=== PATIENT | female | born 1985 | race Two or more races ===

== ENCOUNTER 2019-08-10 07:40 | Inpatient (IN) | payer OTHER ==
[~2019-08-10] VITALS: Ht 157.5 cm; Wt 90.7 kg
[2019-08-10] MEDS ORDERED: OXYTOCIN 30 UNITS/LACT RINGERS 500 ML IV ONE (08:43)
[2019-08-10] MEDS ORDERED: OXYTOCIN 30 UNITS/LACT RINGERS 500 ML IV PRN (08:43)
[2019-08-10] MEDS ORDERED: RINGERS SOLUTION,LACTATED 1,000 ML IV PRN (08:43)
[2019-08-10] MEDS ORDERED: CITRIC ACID/SODIUM CITRATE 30 ML SOLUTION UDCUP PO PRN (08:45)
[2019-08-10] MEDS ORDERED: METOCLOPRAMIDE HCL 5 MG/ML 2 ML VIAL IVP PRN (08:45)
[2019-08-10] MEDS ORDERED: TERBUTALINE SULFATE 1 MG/ML VIAL SQ PRN (08:45)
[2019-08-10] MEDS ORDERED: FentaNYL CITRATE-PF 100 MCG/2 ML VIAL IVP PRN ×4 (08:45→22:30)
[2019-08-10] MEDS: RINGERS SOLUTION,LACTATED 1,000 ML IV SCH ×3 (08:59→20:28)
[2019-08-10] MEDS ORDERED: RINGERS SOLUTION,LACTATED 1,000 ML IV SCH (08:59)
[2019-08-10] MEDS ORDERED: AMPICILLIN SODIUM 2 GM/NS 100 ML IV ONE (09:00)
[2019-08-10 09:22] LABS: BASOPHILS % (AUTO) 0.5 % (0.0-2.0); EOSINOPHILS % (AUTO) 0.5 % (1.0-6.0); HEMATOCRIT 34.3 % (36-46); HEMOGLOBIN 11.4 g/dL (12.0-16.0); LYMPHOCYTES # (AUTO) 1.8 K/uL (1.0-4.8); LYMPHOCYTES % (AUTO) 15.8 % (22.0-44.0); MEAN CORPUSCULAR HEMOGLOBIN 27.9 pg (26.0-34.0); MEAN CORPUSCULAR HGB CONC 33.1 G/dL (31.0-37.0); MEAN CORPUSCULAR VOLUME 84 fL (80-100); MONOCYTES # (AUTO) 0.6 K/uL (0.1-1.0); MONOCYTES % (AUTO) 5.2 % (2.0-9.0); NEUTROPHILS # (AUTO) 8.8 K/uL (1.8-7.7); PLATELET COUNT (AUTO)-OB 168 K/uL (150-450); RED BLOOD CELL COUNT(AUTO) 4.07 MIL/uL (4.00-5.20); RED CELL DISTRIBUTION WIDTH 13.4 % (11.5-14.5)
[2019-08-10] MEDS ORDERED: PREN-217 PO (10:23)
[2019-08-10] MEDS ORDERED: LEVO75 PO (10:23)
[2019-08-10 10:26] VITALS: BP 109/59
[2019-08-10] MEDS ORDERED: AMPICILLIN SODIUM 1 GM/NS 50 ML IV SCH (13:00)
[2019-08-10] MEDS ORDERED: ROPIVACAINE HCL/PF 0.2% 100 ML ED ONE (17:33)
[2019-08-10] MEDS ORDERED: ROPIVACAINE HCL/PF 0.2% 100 ML ED PRN (17:58)
[2019-08-10] MEDS ORDERED: DiphenhydrAMINE HCL 50 MG/ML VIAL IVP PRN ×2 (18:00→22:30)
[2019-08-10] MEDS ORDERED: NALBUPHINE HCL 10 MG/ML VIAL IVP PRN ×3 (18:00→22:30)
[2019-08-10] MEDS ORDERED: ONDANSETRON HCL 4 MG/2 ML VIAL IVP PRN ×2 (18:00→22:30)
[2019-08-10] MEDS ORDERED: OXYGEN THERAPY IH SCH (20:00)
[2019-08-10] MEDS ORDERED: SODIUM CHLORIDE 0.9% 1,000 ML ONE (20:28)
[2019-08-10] MEDS ORDERED: RINGERS SOLUTION,LACTATED 1,000 ML IV ONE (20:28)
[2019-08-10] MEDS ORDERED: LIDOCAINE/PF 2% 5 ML VIAL ONE (20:28)
[2019-08-10] MEDS ORDERED: GUM MASTIC/STORAX/MSAL/ALCOHOL LIQUID 0.67 ML VIAL TP ONE (20:53)
[2019-08-10] MEDS ORDERED: HYDROmorphone 2 MG/ML SYRINGE IVP PRN (21:30)
[2019-08-10] MEDS ORDERED: MEPERIDINE-PF 25 MG/ML VIAL IVP PRN (21:30)
[2019-08-10] MEDS ORDERED: ACETAMINOPHEN 1000 MG/ISO-OSM 100 ML IV ONE (21:46)
[2019-08-10] MEDS ORDERED: OXYTOCIN 20 UNITS/LACT RINGERS 1,000 ML IV SCH (22:27)
[2019-08-10] MEDS ORDERED: DEXTROSE 5%-0.45% SODIUM CHL 1,000 ML IV SCH (22:27)
[2019-08-10] MEDS ORDERED: MORPHINE SULFATE 10 MG/ML SYRINGE IVP PRN (22:30)
[2019-08-10] MEDS ORDERED: OxyCODONE HCL/ACETAMINOPHEN 5-325 MG TABLET PO PRN ×2 (22:30)
[2019-08-10] MEDS ORDERED: GLYCERIN/WITCH HAZEL LEAF 40 PADS JAR TP PRN (22:30)
[2019-08-10] MEDS ORDERED: NALOXONE HCL 0.4 MG/ML VIAL IVP PRN (22:30)
[2019-08-11] MEDS: KETOROLAC TROMETHAMINE 30 MG/ML VIAL IVP SCH ×2 (04:00→10:38)
[2019-08-11] MEDS: ACETAMINOPHEN 1000 MG/ISO-OSM 100 ML IV SCH ×2 (05:36→13:23)
[2019-08-11 07:41] LABS: BASOPHILS % (AUTO) 0.3 % (0.0-2.0); EOSINOPHILS % (AUTO) 0.2 % (1.0-6.0); HEMATOCRIT 28.7 % (36-46); HEMOGLOBIN 9.6 g/dL (12.0-16.0); LYMPHOCYTES # (AUTO) 1.4 K/uL (1.0-4.8); LYMPHOCYTES % (AUTO) 11.9 % (22.0-44.0); MEAN CORPUSCULAR HEMOGLOBIN 28.5 pg (26.0-34.0); MEAN CORPUSCULAR HGB CONC 33.6 G/dL (31.0-37.0); MEAN CORPUSCULAR VOLUME 85 fL (80-100); MONOCYTES # (AUTO) 0.5 K/uL (0.1-1.0); MONOCYTES % (AUTO) 4.3 % (2.0-9.0); NEUTROPHILS % (AUTO) 83.3 % (40.0-70.0); RED BLOOD CELL COUNT(AUTO) 3.38 MIL/uL (4.00-5.20); RED CELL DISTRIBUTION WIDTH 13.6 % (11.5-14.5)
[2019-08-11] MEDS ORDERED: OXYGEN THERAPY IH SCH ×3 (08:00)
[2019-08-11 08:37] LABS: PLATELET COUNT (AUTO)-OB 135 K/uL (150-450)
[2019-08-11] MEDS ORDERED: MAGNESIUM HYDROXIDE SUSPENSION 30 ML UDCUP PO SCH (09:00)
[2019-08-11] MEDS: IBUPROFEN 600 MG TABLET PO PRN (18:20)
[2019-08-12] MEDS: IBUPROFEN 600 MG TABLET PO PRN ×2 (00:57→09:11)
[2019-08-12] MEDS ORDERED: FentaNYL CITRATE-PF 100 MCG/2 ML VIAL IVP ONE (01:12)
[2019-08-12] MEDS ORDERED: LIDOCAINE/PF 2% 5 ML VIAL IM ONE (01:12)
[2019-08-12] MEDS ORDERED: ONDANSETRON HCL 4 MG/2 ML VIAL IVP ONE (01:12)
[2019-08-12] MEDS ORDERED: MORPHINE SULFATE/PF 0.5 MG/ML 10 ML AMP IVP ONE (01:12)
[2019-08-12] MEDS ORDERED: LEVOTHYROXINE SODIUM 75 MCG TABLET PO SCH (06:30)
[2019-08-12] MEDS ORDERED: LANOLIN 7 GM OINTMENT TP PRN (14:15)
[2019-08-12] MEDS ORDERED: IBUP-2071 PO (15:05)
[2019-08-12] MEDS ORDERED: FERR-89 PO (15:06)
[2019-08-12] MEDS ORDERED: DOCU-275 PO (15:06)
[2019-08-12] MEDS ORDERED: PERCT PO (15:35)
== END 2019-08-12 18:50 | disposition home or self-care (01) | DRG 788 ==
LOC: 4S 07:40 → OBSVTOIN 07:40 → 4S 23:46
PROVIDERS: ADMIT Obstetrics & Gynecology; ATTEND Obstetrics & Gynecology
PROC: 10D00Z1 Extraction of Products of Conception, Low, Open Approach (ICD-10-PCS; principal; 2019-08-10)
DX: O76 Abnormality in fetal heart rate and rhythm complicating labor and delivery (principal); Z3A.38 38 weeks gestation of pregnancy; Z37.0 Single live birth
CPT/HCPCS: 86850; 86900; 86901; J0131; J0290; J0690; J1885; J2274; J2405; J2590; J2765; J2795; J3010; J3490; J7030; J7120